=== PATIENT | female | born 1955 | race Caucasian/White ===

== ENCOUNTER 2017-12-25 07:16 | Day surgery (SDC) | payer OTHER ==
[~2017-12-25] VITALS: Ht 157.5 cm; Wt 60.8 kg
[~2017-12-25 07:16] MED LIST: ALBU90OI6 INH; AMLO5 PO; BECL80OI INH; CEPH500 PO; FLUO10 PO; HYDACE5 PO; HYDCHL25 PO; HYDPAM50 PO; LISI20 PO; MELO7.5 PO; NSAIDS PO; PRAV20 PO; SODCHL1 PO; TIOT18 INH; TRAZ50 PO; [UNRECOGNIZED DRUG - OTHER] IV
== END 2017-12-25 14:01 | disposition home or self-care (01) ==
LOC: RAD 07:16
DX: D05.01 Lobular carcinoma in situ of right breast (principal); N62 Hypertrophy of breast
CPT/HCPCS: 19281; J0690; J3010; J7120

== ENCOUNTER → 2018-12-26 | Outpatient (CLI) | payer OTHER ==
[2018-12-27 13:46] LABS: Stool Occult Bld Immuno 1 Negative (NEGATIVE)
== END | disposition home or self-care (01) ==
LOC: LAB SHORT 14:27 → LAB 14:27
PROVIDERS: Nurse Practitioner Family
DX: Z12.11 Encounter for screening for malignant neoplasm of colon (principal)
CPT/HCPCS: G0328

== ENCOUNTER → 2019-05-08 | Outpatient (CLI) | payer OTHER ==
[2019-05-08 14:40] LABS: Sodium, Urine, Random 75 mmol/L (20-110)
[2019-05-08 14:59] LABS: Osmolality, Urine 254 mos/kg (15-1400)
== END ==
LOC: LAB 13:15 → LAB SHORT 13:15
PROVIDERS: Nurse Practitioner Family
DX: E87.1 Hypo-osmolality and hyponatremia (principal)
CPT/HCPCS: 83935; 84300

== ENCOUNTER 2022-09-28 10:41 | Inpatient (IN) | payer OTHER ==
[~2022-09-28] VITALS: Ht 154.9 cm; Wt 53.1 kg
[~2022-09-28 10:41] MED LIST changes: +Zofran4 MG PO
[2022-09-28 11:21] LABS: Hematocrit 25.8 % (33.0-51.0); Hemoglobin 8.6 g/dL (11.5-16.0); Mean Corpuscular HGB 29.2 pg (26.0-34.0); Mean Corpuscular HGB Conc 33.3 g/dL (31.5-36.5); Mean Corpuscular Volume 88 fL (80-100); Mean Platelet Volume 9.3 fL (9.1-12.4); Platelet Count 169 K/mm3 (150-400); RDW Coefficient Variation 13.8 % (11.7-14.2); RDW Standard Deviation 42.5 fL (35.1-46.3); Red Blood Cell Count 2.95 M/mm3 (3.80-5.20)
[2022-09-28 11:42] LABS: White Blood Cell Count 0.78 K/mm3 (4.00-11.30)
[2022-09-28 11:43] LABS: Albumin, Blood 2.8 g/dL (3.4-5.0); Bilirubin, Total 0.5 mg/dL (0.1-1.0); Bun/Creatinine Ratio 10.6 (12.0-20.0); Calcium, Blood 7.4 mg/dL (8.5-10.1); Creatinine, Blood 0.47 mg/dL (0.40-1.00); Globulin, Blood 2.9 g/dL (2.2-4.0); Potassium, Blood 3.5 mmol/L (3.5-5.5); Total Protein, Blood 5.7 g/dL (6.4-8.2)
[2022-09-28 13:36] LABS: BAND PERCENT MAN 8 % (0-8); BASOPHILS PERCENT MAN 0 % (0-2); EOSINOPHILS PERCENT MAN 0 % (0-6); LYMPHOCYTES % ATYPICAL MANUAL 8 % (0-0); LYMPHOCYTES PERCENT MAN 44 % (21-46); MONOCYTES ABSOLUTE MAN 0.15 K/mm3 (0.16-1.47); MONOCYTES PERCENT MAN 20 % (4-13); NEUTROPHILS ABSOLUTE MAN 0.21 K/mm3 (1.96-9.15); SEG NEUTROPHILS PERCENT MAN 20 % (41-73); TOTAL CELLS COUNTED 25
[2022-09-28 16:03] LABS: Source, Urine Voided
[2022-09-28 16:08] LABS: Appearance, Urine Clear (Clear); Bilirubin, Urine Neg (Neg); Blood, Urine Neg (Neg); Color, Urine Yellow (P-Yellow); Glucose Qualitative, Urine Neg (Neg); Ketones, Urine Neg (Neg); Leukocyte Esterase, Urine Neg (Neg); Nitrite, Urine Neg (Neg); Protein, Urine Neg (Neg); Specific Gravity, Urine 1.015 (1.003-1.022); Urobilinogen, Urine NORM (Normal)
[2022-09-28] MEDS ORDERED: QUET100 PO (19:37)
[2022-09-28] MEDS ORDERED: THERA-D2000 UNIT PO (19:38)
[2022-09-28] MEDS ORDERED: FLUOXETINE HCL20 M1 PO (19:41)
[2022-09-28] MEDS ORDERED: SODCHL1 PO (19:43)
[2022-09-28] MEDS ORDERED: LEVO750 PO (19:43)
[2022-09-28] MEDS ORDERED: LISI5 PO (20:23)
[2022-09-28] MEDS ORDERED: QUET25 PO (20:24)
[2022-09-28 21:07] VITALS: BP 155/74
[2022-09-28 21:08] VITALS: BP 155/74
[2022-09-28] MEDS ORDERED: ALBU90OI INH (21:09)
[2022-09-28] MEDS ORDERED: SPIRIVA RESPIMAT4 G3 INH (21:10)
[2022-09-28] MEDS ORDERED: OXYC10TA19 PO (21:13)
[2022-09-29 02:24] VITALS: BP 159/89
[2022-09-29 05:46] LABS: Hematocrit 26.1 % (33.0-51.0); Hemoglobin 8.8 g/dL (11.5-16.0); Mean Corpuscular HGB 28.9 pg (26.0-34.0); Mean Corpuscular HGB Conc 33.7 g/dL (31.5-36.5); Mean Corpuscular Volume 86 fL (80-100); Mean Platelet Volume 9.5 fL (9.1-12.4); Platelet Count 137 K/mm3 (150-400); RDW Coefficient Variation 13.6 % (11.7-14.2); RDW Standard Deviation 41.5 fL (35.1-46.3); Red Blood Cell Count 3.04 M/mm3 (3.80-5.20); White Blood Cell Count 1.14 K/mm3 (4.00-11.30)
--- NOTE | 2022-09-29 06:24 | NUR ---
SHIFT SUMMARY PT IS A&O4, SB TO THE BSC, 2L NC @ BASELINE, VSS, PRN AND SCHEDULED PAIN MED GIVEN PER MAR, NO ACUTE OVERNIGHT EVENTS, FIRE IGNITION EDUCATION PROVIDED, CONTINUE POC
[2022-09-29 07:11] VITALS: BP 140/85
[2022-09-29 15:38] VITALS: BP 147/78
--- NOTE | 2022-09-29 16:36 | NUR ---
DAYSHIFT SUMMARY Patient alert & oriented x4, pleasant & cooperative, uses call-light for assistance. Patient reporting of generalized pain. New order for Fentynal patch, placed on left upper chest. Patient worked with therapy today, recommendation to use FWW when ambulating. Patient c/o weakness, feeling unsteady. Needed assistance to get up to standing position. Vitals stable. Educated patient on ignition sources and risk of injury while oxygen is in use. Patient verbalized understanding and denies smoking. MRI done this shift, resulted in chart. Will continue plan of care.
--- NOTE | 2022-09-29 18:26 | NUR ---
The pt asked bedside RN about results of her scans yesterday and today. Pt has a hx of stage IV lung cancer. She has been having increased pain, SOB and weakness recently leading to her hospitalization. Bedside RN requested assist of Palliative Care. Attempted to reach hospitalist, Dr. Valdez who was willing to discuss the new metastatses to pt. Palliative to see her this weekend, discuss advance care planning.
[2022-09-29 19:51] VITALS: BP 147/83
[2022-09-30 05:46] VITALS: BP 128/76
[2022-09-30 05:51] LABS: Hematocrit 23.1 % (33.0-51.0); Hemoglobin 7.9 g/dL (11.5-16.0); Mean Corpuscular HGB 29.2 pg (26.0-34.0); Mean Corpuscular HGB Conc 34.2 g/dL (31.5-36.5); Mean Corpuscular Volume 85 fL (80-100); Mean Platelet Volume 10.2 fL (9.1-12.4); Platelet Count 113 K/mm3 (150-400); RDW Coefficient Variation 13.8 % (11.7-14.2); RDW Standard Deviation 42.3 fL (35.1-46.3); Red Blood Cell Count 2.71 M/mm3 (3.80-5.20); White Blood Cell Count 1.16 K/mm3 (4.00-11.30)
--- NOTE | 2022-09-30 06:09 | NUR ---
SHIFT SUMMARY PT IS A&O4, SB WITH FWW TO BR, 2L NC @ BASELINE, PRN PAIN MEDICATION GIVEN PER MAR, VSS, NO ACUTE OVERNIGHT EVENTS, FIRE IGNITION EDUCATION PROVIDED, CONTINUE POC
[2022-09-30 06:23] LABS: Albumin, Blood 2.6 g/dL (3.4-5.0); Albumin/Globulin Ratio 0.9 (0.8-1.8); Bilirubin, Total 0.4 mg/dL (0.1-1.0); Bun/Creatinine Ratio 12.1 (12.0-20.0); Calcium, Blood 7.4 mg/dL (8.5-10.1); Creatinine, Blood 0.58 mg/dL (0.40-1.00); Globulin, Blood 2.8 g/dL (2.2-4.0); Potassium, Blood 3.8 mmol/L (3.5-5.5); Total Protein, Blood 5.4 g/dL (6.4-8.2)
[2022-09-30 07:46] VITALS: BP 145/97
[2022-09-30] MEDS ORDERED: DEXA2 PO (11:08)
[2022-09-30] MEDS ORDERED: DOCU100 PO (11:08)
[2022-09-30] MEDS ORDERED: FENTANYL TOP (11:11)
--- NOTE | 2022-09-30 12:18 | NUR ---
Patient slept well last night, feeling stronger today. Fentynal patch is effective. Plan to DC home today & f/u with oncology. Rx scripts for oxyCONTin & Fentynal patch given to patch, reviewed education on these medications. Patient verbalized understanding. Patient uses O2 PRN, provided education on fire safety, patient verbalized understanding. Patient left medical floor at 1130.
== END 2022-09-30 11:34 | disposition home or self-care (01) | DRG 542 ==
LOC: ER 10:41 → MEDS 10:42
PROVIDERS: Emergency Medicine; Internal Medicine; ADMIT Nurse Practitioner Acute Care
DX: M84.58XA Pathological fracture in neoplastic disease, other specified site, initial encounter for fracture (principal); D61.810 Antineoplastic chemotherapy induced pancytopenia; C34.91 Malignant neoplasm of unspecified part of right bronchus or lung; E46 Unspecified protein-calorie malnutrition; C79.31 Secondary malignant neoplasm of brain; C79.51 Secondary malignant neoplasm of bone; C34.92 Malignant neoplasm of unspecified part of left bronchus or lung; Z66 Do not resuscitate; I10 Essential (primary) hypertension; D70.9 Neutropenia, unspecified; E78.5 Hyperlipidemia, unspecified; M48.061 Spinal stenosis, lumbar region without neurogenic claudication; J44.9 Chronic obstructive pulmonary disease, unspecified; F32.A Depression, unspecified; F17.210 Nicotine dependence, cigarettes, uncomplicated; T45.1X5A Adverse effect of antineoplastic and immunosuppressive drugs, initial encounter; Z91.030 Bee allergy status; Z79.51 Long term (current) use of inhaled steroids; Z79.899 Other long term (current) drug therapy; Z79.811 Long term (current) use of aromatase inhibitors; Z90.710 Acquired absence of both cervix and uterus; Z90.49 Acquired absence of other specified parts of digestive tract; Z99.81 Dependence on supplemental oxygen; Z68.20 Body mass index [BMI] 20.0-20.9, adult
CPT/HCPCS: 36415; 70450; 70551; 72131; 72141; 72146; 72148; 80053; 81003; 85025; 85027; 94640; 94664; 94760; 96360; 96361; 96372; 97110; 97161; 97530; 99285-25; A9270; G0378; J1650; J7030